=== PATIENT | female | born 2000 | race Caucasian/White ===

== ENCOUNTER → 2019-10-10 09:55 | Outpatient (CLI) | payer BC, SELFPAY ==
[2019-10-10 12:44] LABS: AST(SGOT) 12 U/L (15-37); Alanine Aminotransfer ALT/SGPT 28 U/L (13-56); Cholesterol 186 mg/dL (200); High Density Lipoprotein 72 mg/dL; Triglycerides 60 mg/dL; Very Low Density Lipoprotein 12 mg/dL (5-40)
[2019-10-10 12:59] LABS: Internal QC Validated? YES +Cl - CLEAR BKGD; Pregnancy, Serum, hCG Quali. NEGATIVE Negative
== END ==
PROVIDERS: Referring Provider Dermatology; Visit Provider Dermatology
DX: Z79.899 Other long term (current) drug therapy (principal)
CPT/HCPCS: 36415; 80061; 84450; 84460; 84703

== ENCOUNTER → 2019-11-14 10:13 | Outpatient (CLI) | payer BC, SELFPAY ==
[2019-11-14 12:53] LABS: Internal QC Validated? YES +Cl - CLEAR BKGD; Pregnancy, Urine Negative Negative
== END ==
PROVIDERS: Referring Provider Dermatology; Visit Provider Dermatology
DX: L70.0 Acne vulgaris (principal); Z79.899 Other long term (current) drug therapy
CPT/HCPCS: 81025

== ENCOUNTER → 2019-12-04 10:25 | Outpatient (CLI) | payer BC, SELFPAY ==
[2019-12-04 12:55] LABS: Internal QC Validated? YES +Cl - CLEAR BKGD; Pregnancy, Urine Negative Negative
== END ==
PROVIDERS: Referring Provider Dermatology; Visit Provider Dermatology
DX: L70.0 Acne vulgaris (principal); L23.3 Allergic contact dermatitis due to drugs in contact with skin; Z79.899 Other long term (current) drug therapy
CPT/HCPCS: 81025

== ENCOUNTER → 2020-04-15 14:34 | Outpatient (CLI) | payer BC, SELFPAY ==
[2020-04-15 18:58] LABS: Internal QC Validated? YES +Cl - CLEAR BKGD; Pregnancy, Urine Negative Negative
== END ==
PROVIDERS: Referring Provider Dermatology; Visit Provider Dermatology
DX: L70.0 Acne vulgaris (principal); L90.5 Scar conditions and fibrosis of skin; L23.3 Allergic contact dermatitis due to drugs in contact with skin; Z79.899 Other long term (current) drug therapy
CPT/HCPCS: 81025

== ENCOUNTER → 2020-05-23 09:12 | Outpatient (CLI) | payer BC, SELFPAY ==
[2020-05-23 10:00] LABS: Internal QC Validated? YES +Cl - CLEAR BKGD; Pregnancy, Serum, hCG Quali. NEGATIVE Negative
[2020-05-23 10:17] LABS: AST(SGOT) 15 U/L (15-37); Alanine Aminotransfer ALT/SGPT 25 U/L (13-56); Cholesterol 223 mg/dL (200); High Density Lipoprotein 62 mg/dL; Triglycerides 84 mg/dL; Very Low Density Lipoprotein 17 mg/dL (5-40)
== END ==
PROVIDERS: Referring Provider Dermatology; Visit Provider Dermatology
DX: L70.0 Acne vulgaris (principal); L90.5 Scar conditions and fibrosis of skin; L23.3 Allergic contact dermatitis due to drugs in contact with skin; Z79.899 Other long term (current) drug therapy
CPT/HCPCS: 36415; 80061; 84450; 84460; 84703

== ENCOUNTER → 2020-06-24 09:45 | Outpatient (CLI) | payer BC, SELFPAY ==
[2020-06-24 12:56] LABS: Internal QC Validated? YES +Cl - CLEAR BKGD; Pregnancy, Urine Negative Negative
== END ==
PROVIDERS: Referring Provider Dermatology; Visit Provider Dermatology
DX: L23.3 Allergic contact dermatitis due to drugs in contact with skin (principal); L70.0 Acne vulgaris; L90.5 Scar conditions and fibrosis of skin; Z79.899 Other long term (current) drug therapy
CPT/HCPCS: 81025

== ENCOUNTER → 2020-07-24 09:38 | Outpatient (CLI) | payer BC, SELFPAY ==
[2020-07-24 12:48] LABS: Internal QC Validated? YES +Cl - CLEAR BKGD; Pregnancy, Urine Negative Negative
== END ==
PROVIDERS: Referring Provider Dermatology; Visit Provider Dermatology
DX: L70.0 Acne vulgaris (principal); L90.5 Scar conditions and fibrosis of skin; L23.3 Allergic contact dermatitis due to drugs in contact with skin; Z79.899 Other long term (current) drug therapy
CPT/HCPCS: 81025

== ENCOUNTER → 2020-09-30 15:58 | Outpatient (CLI) | payer BC, SELFPAY ==
[2020-09-30 18:05] LABS: Internal QC Validated? YES +Cl - CLEAR BKGD; Pregnancy, Urine Negative Negative
== END ==
PROVIDERS: Referring Provider Dermatology; Visit Provider Dermatology
DX: L70.0 Acne vulgaris (principal); L90.5 Scar conditions and fibrosis of skin; L23.3 Allergic contact dermatitis due to drugs in contact with skin; Z79.899 Other long term (current) drug therapy
CPT/HCPCS: 81025

== ENCOUNTER → 2020-12-02 16:17 | Outpatient (CLI) | payer BC, SELFPAY ==
[2020-12-02 17:46] LABS: Internal QC Validated? YES +Cl - CLEAR BKGD
[2020-12-02 17:47] LABS: Pregnancy, Urine Negative Negative
== END ==
PROVIDERS: Referring Provider Dermatology; Visit Provider Dermatology
DX: L70.0 Acne vulgaris (principal); L90.5 Scar conditions and fibrosis of skin; Z79.899 Other long term (current) drug therapy
CPT/HCPCS: 81025

== ENCOUNTER → 2020-12-24 15:21 | Outpatient (CLI) | payer BC, SELFPAY ==
[2020-12-24 18:04] LABS: Internal QC Validated? YES +Cl - CLEAR BKGD; Pregnancy, Urine Negative Negative
== END ==
PROVIDERS: Referring Provider Dermatology; Visit Provider Dermatology
DX: L70.0 Acne vulgaris (principal); L90.5 Scar conditions and fibrosis of skin; Z79.899 Other long term (current) drug therapy
CPT/HCPCS: 81025

== ENCOUNTER → 2021-01-27 16:52 | Outpatient (CLI) | payer BC, SELFPAY ==
[2021-01-27 18:21] LABS: Internal QC Validated? YES +Cl - CLEAR BKGD; Pregnancy, Urine Negative Negative
== END ==
PROVIDERS: Referring Provider Dermatology; Visit Provider Dermatology
DX: L70.0 Acne vulgaris (principal); L90.5 Scar conditions and fibrosis of skin; Z79.899 Other long term (current) drug therapy
CPT/HCPCS: 36415; 81025

== ENCOUNTER → 2021-02-25 16:31 | Outpatient (CLI) | payer BC, SELFPAY ==
[2021-02-25 18:12] LABS: Internal QC Validated? YES +Cl - CLEAR BKGD; Pregnancy, Urine Negative Negative
== END ==
PROVIDERS: Referring Provider Dermatology; Visit Provider Dermatology
DX: L70.0 Acne vulgaris (principal); L90.5 Scar conditions and fibrosis of skin; K13.0 Diseases of lips; L85.3 Xerosis cutis; L23.3 Allergic contact dermatitis due to drugs in contact with skin; Z79.899 Other long term (current) drug therapy
CPT/HCPCS: 81025